=== PATIENT | male | born 1975 | race Caucasian/White ===

== ENCOUNTER 2021-07-09 01:42 | Emergency (ER) | payer SELFPAY ==
[2021-07-09 01:59] VITALS: BP 174/107
--- NOTE | 2021-07-09 02:05 | ED Physician Documentation ---
PD HPI SKIN - Stated complaint Stated Complaint: BUMPS ON HANDS, R HAND SWOLLEN - Chief complaint Chief Complaint: Wound - History obtained from History obtained from: Patient - History of Present Illness Timing - onset: How many days ago (3) Timing - duration: Days (3) Timing - details: Abrupt onset, Still present Location: Other (was camping and had carried some logs/firewood. No obvious splinters. Started with redness right middle finger. Then has redness and swelling increase over 3 days, and several discrete red/ bump areas on hand and forearms. Also notes some redness right great toe.) Contributing factors: No: Exposed to Poison claudia/oak, Insect bite /sting Similar symptoms before: Has not had sx before Review of Systems Constitutional: denies: Fever, Chills Respiratory: denies: Dyspnea, Cough Skin: reports: Lesions. denies: Rash Neurologic: denies: Generalized weakness PD PAST MEDICAL HISTORY - Past Medical History Past Medical History: Yes Cardiovascular: Hypertension Psych: Anxiety - Past Surgical History Past Surgical History: Yes Ortho: Spine surgery, Other - Present Medications Home Medications: Ambulatory Orders Medication Instructions Recorded Confirmed Chlorhexidine Gluconate [Hibiclens] 15 ml TP DAILY #236 ml 07/09/21 Mupirocin 2% Oint [Bactroban 2% 1 applic TOP TID #15 gm 07/09/21 Oint] Sulfamethox/Trimeth 800/160 1 each PO BID #14 tablet 07/09/21 [Bactrim Ds 800/160] - Allergies Allergies/Adverse Reactions: Allergies Allergy/AdvReac Type Severity Reaction Status Date / Time No Known Drug Allergies Allergy Verified 07/09/21 01:59 - Social History Does the pt smoke?: Yes Smoking Status: Current every day smoker Does the pt drink ETOH?: Yes Does the pt have substance abuse?: Yes Substance Use and Type: Marijuana - Immunizations Immunizations are current?: Yes - POLST Patient has POLST: No PD ED PE NORMAL - Vitals Vital signs reviewed: Yes - General General: Alert and oriented X 3, No acute distress, Well developed/nourished - Neck Neck: Supple, no meningeal sign, No adenopathy - Cardiac Cardiac: RRR, No murmur - Respiratory Respiratory: Clear bilaterally - Derm Derm: Normal color, Warm and dry - Extremities Extremities: Other (right middle finger with small abrasion/ulceration in skin about 2-3 mm size. Redness and swelling of finger diffusely. Has cap refill in tip and ROM limited from swelling. Redness to the MCP area. No fluctuance. Bedside U/S without FB nor abscess seen. several small red lesions on forearms, hand.) - Neuro Neuro: Alert and oriented X 3, No motor deficit, No sensory deficit Results - Vitals Vitals: Oxygen O2 Source Room air PD MEDICAL DECISION MAKING - ED course Complexity details: considered differential (bedside U/S did not show any fluid collection nor notable FB. Appearance c/w cellulitis, but also has some satellite lesions on hand/forearms, so more likely staph. ), d/w patient Departure - Departure Disposition: 01 Home, Self Care Clinical Impression: Finger abrasion, infected Qualifiers: Encounter type: initial encounter Qualified Code(s): S60.419A - Abrasion of unspecified finger, initial encounter Condition: Stable Record reviewed to determine appropriate education?: Yes Instructions: ED Staph Infec Abx Tx Only Prescriptions: Sulfamethox/Trimeth 800/160 [Bactrim Ds 800/160] 1 each PO BID #14 tablet Mupirocin 2% Oint [Bactroban 2% Oint] 1 applic TOP TID #15 gm Chlorhexidine Gluconate [Hibiclens] 15 ml TP DAILY #236 ml Comments: This looks to be a skin and wound infection called cellulitis. Cleanse the area of the wounds 2-3 times daily with soap and water and apply the mupirocin antibiotic ointment to the areas. Also take the Bactrim oral antibiotic twice daily for the next 5 to 7 days until these seem resolved. Use the chlorhexidine body wash head to toe in the shower to remove excess germs off the surface of your skin. Recheck if not improved well over the next few days. Tylenol or ibuprofen if needed for pains. Use the hydrocodone in the short-term if needed for worse pain and there are the 4 tablets in that bottle. You can use 1 every 4-6 hours if needed. I transmitted your prescriptions to [facility] pharmacy in [place]. I am prescribing a short course of narcotic pain medication for you. These are potentially dangerous and addictive medications that should be used carefully. These medications may constipate you. Take an [id number] stool softener such as docusate twice daily with plenty of water while taking these medications. If you go 24 hours without a bowel movement, take [id number] MiraLAX, per package instructions. Do not drink or drive while taking these medications. If you received narcotic or sedating medications while in the emergency department do not drive for 24 hours. Store this medication in a safe, secure place and out of reach of children. It is a violation of federal law to give or sell this medication to another person or to use in a manner other than prescribed. The ED will not refill narcotic prescriptions, including prescriptions lost or stolen. You can dispose of unwanted medications at the [facility]'s office or at several pharmacies such as [facility]. Discharge Date/Time: 07/09/21 03:12
[2021-07-09] MEDS ORDERED: SULFAMETH/TRIMETH DS 800/160 MG TABLET PO STA (02:37)
[2021-07-09] MEDS ORDERED: IBUPROFEN 600 MG TABLET PO STA (02:37)
[2021-07-09] MEDS ORDERED: MUPIROCIN 2% OINT 1 GM TOP STA (02:37)
[2021-07-09] MEDS ORDERED: HYDROcod/ACET 5/325 Prepack 4 PO STA (02:37)
== END 2021-07-09 03:12 | disposition home or self-care (01) ==
LOC: ED 01:42
DX: S60.412A Abrasion of right middle finger, initial encounter (principal); X58.XXXA Exposure to other specified factors, initial encounter; Y93.89 Activity, other specified; Y92.833 Campsite as the place of occurrence of the external cause; F17.200 Nicotine dependence, unspecified, uncomplicated
CPT/HCPCS: 99282; 99283; A9270

== ENCOUNTER 2021-08-15 14:15 | Emergency (ER) | payer SELFPAY ==
[2021-08-15 15:11] LABS: BASOPHILS # (AUTO) 0.1 10^3/uL (0.0-0.1); BASOPHILS % (AUTO) 0.5 %; EOSINOPHILS # (AUTO) 0.6 10^3/uL (0.0-0.7); HCT - HEMATOCRIT 40.7 % (42.0-52.0); HGB - HEMOGLOBIN 13.2 g/dL (14.0-18.0); LYMPHOCYTES # (AUTO) 3.5 10^3/uL (1.5-3.5); LYMPHOCYTES % (AUTO) 22.8 %; MEAN CORPUSCULAR HGB CONC 32.4 g/dL (32.0-36.0); MEAN CORPUSCULAR VOLUME 83.4 fL (80.0-94.0); MEAN PLATELET VOLUME 10.6 fL (7.4-11.4); MONOCYTES # (AUTO) 1.3 10^3/uL (0.0-1.0); MONOCYTES % (AUTO) 8.2 %; NEUTROPHILS # (AUTO) 9.8 10^3/uL (1.5-6.6); NEUTROPHILS % (AUTO) 63.7 %; PLT - PLATELET COUNT 383 10^3/uL (130-450); RED BLOOD COUNT 4.88 10^6/uL (4.70-6.10); RED CELL DISTRIBUTION WIDTH 13.2 % (12.0-15.0); WHITE BLOOD COUNT 15.4 x10^3/uL (4.8-10.8)
[2021-08-15 15:24] LABS: ALBUMIN 3.5 g/dL (3.2-5.5); ALBUMIN/GLOBULIN RATIO 1.4 (1.0-2.2); BILIRUBIN,TOTAL 0.3 mg/dL (0.2-1.0); CREATININE 1.7 mg/dL (0.6-1.2); POTASSIUM 3.1 mmol/L (3.5-5.0)
--- NOTE | 2021-08-15 15:27 | XRAY Report ---
PROCEDURE: Chest 1 View X-Ray INDICATIONS: Chest pain TECHNIQUE: One view of the chest was acquired. COMPARISON: None FINDINGS: Surgical changes and devices: None. Lungs and pleura: No pleural effusions or pneumothorax. Lungs are clear. Mediastinum: Mediastinal contours appear normal. Heart size is normal. Bones and chest wall: No suspicious bony lesions. Overlying soft tissues appear unremarkable. IMPRESSION: No evidence acute pulmonary process. Reviewed by: Edvin Corey MD on 08/15/2021 3:25 PM PST Approved by: Edvin Corey MD on 08/15/2021 3:25 PM PST Station ID: [id number]
[2021-08-15] MEDS ORDERED: ALPRAZolam 0.25 MG TABLET PO STA (16:05)
[2021-08-15] MEDS ORDERED: METOPROLOL TARTRATE 50 MG TABLET PO STA (16:06)
[2021-08-15] MEDS ORDERED: ASPIRIN CHEW 81 MG TABLET PO STA (16:06)
--- NOTE | 2021-08-15 17:23 | ED Physician Documentation ---
History of Present Illness - Stated complaint Stated Complaint: HIGH BP, COUGHING BLOOD - Chief complaint Chief Complaint: Cardiac - History obtained from History obtained from: Patient - Additonal information Additional information: Patient comes emergency department chief complaint of "My blood pressure's running high and have been coughing". The patient states he has a history of hypertension and is on amlodipine and metoprolol, though he cannot tell me the doses. He states he has been taking his medications. He was seen a doctor in [place] where he is from, but just moved out here a couple of months ago to be with his new girlfriend who lives here and would be. Patient states he has not yet established with a primary doctor here. He states that over the last couple of weeks, he has been noticing that his blood pressures are running higher, up into the 200s over 100s. He is not sure what they were running before, but he thinks this is definitely worse than they have been. The patient states that sometimes he gets anxious which causes his blood pressures to go high. He states that Xanax often helps in this case. He states sometimes he feels a throbbing feeling in his ears but usually, he does have any other symptoms. No chest pain or shortness of breath. No severe headache or visual changes. No discolored urine. He does have a cough and occasionally gets some streaks of blood in his sputum. He denies any fevers. No other complaints at this time. PD PAST MEDICAL HISTORY - Present Medications Home Medications: Ambulatory Orders Medication Instructions Recorded Confirmed Chlorhexidine Gluconate [Hibiclens] 15 ml TP DAILY #236 ml 07/09/21 Mupirocin 2% Oint [Bactroban 2% 1 applic TOP TID #15 gm 07/09/21 Oint] Sulfamethox/Trimeth 800/160 1 each PO BID #14 tablet 07/09/21 [Bactrim Ds 800/160] Metoprolol Succinate [Kapspargo 200 mg PO DAILY #30 08/15/21 Sprinkle] amLODIPine [Norvasc] 5 mg PO DAILY #30 tablet 08/15/21 - Allergies Allergies/Adverse Reactions: Allergies Allergy/AdvReac Type Severity Reaction Status Date / Time No Known Drug Allergies Allergy Verified 08/16/21 11:38 PD ED PE NORMAL - Vitals Vital signs reviewed: Yes - General General: Alert and oriented X 3, No acute distress, Well developed/nourished - HEENT HEENT: Atraumatic, PERRL, EOMI, Moist mucous membranes - Neck Neck: Supple, no meningeal sign - Cardiac Cardiac: RRR, No murmur, Strong equal pulses - Respiratory Respiratory: No respiratory distress, Clear bilaterally - Abdomen Abdomen: Soft, Non tender, Non distended - Derm Derm: Normal color, Warm and dry, No rash - Extremities Extremities: No deformity, No edema - Neuro Neuro: Alert and oriented X 3, lubricating machine tender 2-12 intact, Normal speech - Psych Psych: Normal mood, Normal affect Results - Vitals Vitals: Vital Signs - 24 hr 08/15/21 08/15/21 16:16 17:53 Heart Rate 82 74 Respiratory 19 16 Rate Blood Pressure 169/132 H 179/130 H O2 Saturation 94 98 Oxygen O2 Source Room air - EKG (time done) 1447 Rate: Rate (enter#) (83) Rhythm: NSR [place]: Normal Intervals: Normal [place] QRS: Normal Ischemia: Normal ST segments, Non specific changes Compare to prior EKG: Old EKG unavailable Computer interpretation: Agree with computer - Labs Labs: Laboratory Tests 08/15/21 08/15/21 08/15/21 14:55 14:55 14:55 WBC 15.4 H RBC 4.88 Hgb 13.2 L Hct 40.7 L MCV 83.4 MCH 27.0 MCHC 32.4 RDW 13.2 Plt Count 383 MPV 10.6 Neut # (Auto) 9.8 H Lymph # (Auto) 3.5 [place] # (Auto) 1.3 H Eos # (Auto) 0.6 Baso # (Auto) 0.1 Absolute Nucleated RBC 0.00 Nucleated RBC % 0.0 Sodium 136 Potassium 3.1 L Chloride 100 L Carbon Dioxide 25 Anion Gap 11.0 BUN 23 H Creatinine 1.7 H Estimated GFR (MDRD) 44 L Glucose 132 H Calcium 9.0 Total Bilirubin 0.3 AST 22 ALT 20 Alkaline Phosphatase 66 Troponin I High Sens 80.5 H* Total Protein 6.0 L Albumin 3.5 Globulin 2.5 Albumin/Globulin Ratio 1.4 Lipase 34 08/15/21 16:24 WBC RBC Hgb Hct MCV MCH MCHC RDW Plt Count MPV Neut # (Auto) Lymph # (Auto) [place] # (Auto) Eos # (Auto) Baso # (Auto) Absolute Nucleated RBC Nucleated RBC % Sodium Potassium Chloride Carbon Dioxide Anion Gap BUN Creatinine Estimated GFR (MDRD) Glucose Calcium Total Bilirubin AST ALT Alkaline Phosphatase Troponin I High Sens 76.7 H* Total Protein Albumin Globulin Albumin/Globulin Ratio Lipase - Rads (name of study) cxr Radiology: Final report received, EMP read indepedently, See rad report (neg) PD MEDICAL DECISION MAKING - ED course Complexity details: reviewed results, re-evaluated patient, considered differential, d/w patient ED course: The patient was found to have a very high blood pressure in the emergency department, and for this was given metoprolol. He also stated he had been anxious and this puts his blood pressure up and had requested a dose of Xanax, so he was given a single dose. The patient was found to be quite drowsy after this, but still with a high blood pressure. His laboratory studies showed significant renal insufficiency, with an elevated troponin around 80. Repeat troponin was found to be in the mid 70s. I discussed the case with Dr. Garcia, and she stated that she did not think the troponin was elevated due to an [place] but rather, represented normal metabolism and muscle breakdown in the face of renal failure. She felt the blood pressure was likely high because of the renal failure and was causing worse renal failure as a vicious cycle. I spoke with the patient and explained the situation to him, and that I am very concerned about both his blood pressure and his kidney failure at his young age. He still makes lots of urine, but I have advised him that it is extremely important that he gets better control of his blood pressure and follows closely with primary care, or he will likely end up with his, kidneys completely filling. Patient does not remember what doses he is on for metoprolol or amlodipine. As such, I have prescribed metoprolol 200 mg daily as an extended release and his amlodipine 5 mg. The patient is unsure if he is going to stay in [place] because he is seeing how his relationship works out with his girlfriend first, but in the meantime, I have stressed the importance of establishing with primary care even if it is only for a short time. The patient has been given a number of primary care options that he may reach out to for fo llow-up. We have discussed the usual indications for return Departure - Departure Disposition: Home, Self Care Clinical Impression: Poorly-controlled hypertension, Renal insufficiency Condition: Stable Instructions: ED Diet Renal, ED Hypertension Conf Out Of Control, ED Insufficiency Renal Follow-Up: Stephan Guerrero MD [Credentialed Staff Provider] - Laron Eduardo MD [Provider Admit Priv/Credential] - Laron Eduardo MD [Provider Admit Priv/Credential] - Troy Ariza MD [Physician No Access] - Rossi Mcdaniel MD [Credentialed Staff Provider] - Prescriptions: Metoprolol Succinate [Kapspargo Sprinkle] 200 mg PO DAILY #30 amLODIPine [Norvasc] 5 mg PO DAILY #30 tablet Comments: Your labs today show that you are in the middle stages of kidney failure. This is very concerning, given that your blood pressure is also very high and out of control. Neither of these are likely to be an acute problem, however, and Most likely, each 1 has made the other worse. It is extremely important that you get control of your blood pressure to prevent any further damage to your kidneys. Since you are not sure what doses of metoprolol and amlodipine you are on, I have given you a prescription for a fairly high metoprolol dose, as well as a moderate amlodipine dose. It is very important that you get these filled and start them right away. These medications may take the place of the other ones you were taking, but please do not get rid of your other medications, and in case there is any delay in getting into see primary care. It is very important that you follow-up in primary care and you should call first thing tomorrow morning to make an appointment for follow-up regarding both your kidney function and your blood pressure. As far as your repeat heart labs, they are stable, and your case was discussed with our hospitalist on-call who is also cardiology trained. She feels that your heart labs are elevated, due to the decreased kidney function, and she has also reiterated that you need to follow closely with primary care to be sure that your blood pressure is improving. Discharge Date/Time: 08/15/21 17:55
[2021-08-15 17:54] VITALS: BP 179/130
== END 2021-08-15 17:55 | disposition home or self-care (01) ==
LOC: ED 14:15 → MERGE 14:15 → ED 17:55
DX: I10 Essential (primary) hypertension (principal); N28.9 Disorder of kidney and ureter, unspecified
CPT/HCPCS: 36415; 71045; 80053; 83690; 84484; 85025; 93005; 99283; 99284; A9270